=== PATIENT | female | born 1975 | race Two or more races ===

== ENCOUNTER 2016-08-10 16:48 | Observation (INO) | payer BC, MEDICAID ==
[2016-08-10 18:35] LABS: HEMATOCRIT 23.5 % (36.0-47.0); HGB HCT DIFFERENCE -2.5; MEAN CORPUSCULAR HEMOGLOBIN 18.6 pg (27.0-33.4); MEAN CORPUSCULAR VOLUME 62 fl (80-97); RED BLOOD COUNT 3.79 10^6/uL (3.72-5.28); RED CELL DISTRIBUTION WIDTH 18.4 % (11.5-14.0); WHITE BLOOD COUNT 4.1 10^3/uL (4.0-10.5)
[2016-08-11 08:48] VITALS: BP 129/89
[2016-08-11 10:17] LABS: HEMATOCRIT 31.7 % (36.0-47.0); MEAN CORPUSCULAR HEMOGLOBIN 21.7 pg (27.0-33.4); MEAN CORPUSCULAR HGB CONC 31.3 g/dL (32.0-36.0); RED BLOOD COUNT 4.58 10^6/uL (3.72-5.28); RED CELL DISTRIBUTION WIDTH 24.8 % (11.5-14.0); WHITE BLOOD COUNT 6.5 10^3/uL (4.0-10.5)
[2016-08-11 10:44] LABS: HEMOGLOBIN 9.9 g/dL (12.0-15.5)
[2016-08-11 10:45] LABS: MEAN CORPUSCULAR VOLUME 69 fl (80-97)
== END 2016-08-11 11:34 | disposition home or self-care (01) ==
LOC: II 16:48 → 2N 16:52 → II 17:37
PROVIDERS: ADMIT Internal Medicine; ATTEND Internal Medicine
PROC: 30233N1 Transfusion of Nonautologous Red Blood Cells into Peripheral Vein, Percutaneous Approach (ICD-10-PCS; principal; 2016-08-10)
PROC: 30233N1 Transfusion of Nonautologous Red Blood Cells into Peripheral Vein, Percutaneous Approach (ICD-10-PCS; 2016-08-11)
DX: D50.9 Iron deficiency anemia, unspecified (principal)
CPT/HCPCS: 86900; 86901; 36415 ×2; 36430; 86850; 85027; 86920; G0378 ×2; G0379; P9016 ×2

== ENCOUNTER → 2016-08-20 | Outpatient (CLI) | payer BC, MEDICAID | LOC: RAD 09:21 | PROVIDERS: ATTEND Internal Medicine | DX: H05.122 Orbital myositis, left orbit (principal) | CPT/HCPCS: 70553; A9577 ==

== ENCOUNTER → 2016-10-04 | Outpatient (CLI) | payer BC, MEDICAID ==
--- NOTE | 2016-10-05 08:48 | RADIOLOGY REPORT (SQ) ---
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 T1 post tom olinium sequences. CONTRAST TYPE AND DOSE: 15 mL Multihance. RENAL FUNCTION: GFR > 60. LIMITATIONS: None. FINDINGS: ALIGNMENT: Normal. VERTEBRAE: Intact. BONE MARROW: Normal. No marrow replacement or reactive changes. DISCS: Mild decreased T2 weighted intervertebral disc signal from C2-3 through C6-7 HARDWARE: None in the spine. CORD AND BASE OF BRAIN: Normal in size and signal intensity. Specifically, no cord signal abnormalit ies worrisome for demyelinating disease. No abnormal contrast enhancement. SOFT TISSUES: No soft tissue masses. C1-C2: No significant spinal stenosis. C2-C3: No significant spinal stenosis or exit foraminal stenosis. C3-C4: Mild diffuse posterior disc bulging is present partly effacing the ventral thecal sac and abut ting the cord without cord flattening or abnormal intrinsic cord signal. No significant foraminal na rrowing. C4-C5: No significant spinal stenosis or exit foraminal stenosis. C5-C6: No significant spinal stenosis or exit foraminal stenosis. C6-C7: Minimal posterior disc bulging and bony spurring is present without significant central or for aminal encroachment. C7-T1: No significant spinal stenosis or exit foraminal stenosis. UPPER THORACIC: Incompletely imaged. No significant spinal stenosis or exit foraminal stenosis. ENHANCEMENT: No abnormal medulla, cervical cord, or upper thoracic cord contrast enhancement. No cor d lesions. OTHER: No other significant finding. IMPRESSION: Very mild degenerative disc changes at C3-4 and C6-7. No abnormal intrinsic cervical cord/upper thoracic cord intrinsic signal intensity or contrast enhanc ement COMMENT: None. TECHNICAL DOCUMENTATION: JOB ID: [id number] [employer] All Rights Reserved
== END ==
LOC: RAD 15:59
DX: R90.82 White matter disease, unspecified (principal); M47.892 Other spondylosis, cervical region
CPT/HCPCS: 72156; A9577